=== PATIENT | male | born 1980 | race Caucasian/White ===

== ENCOUNTER 2018-08-15 15:23 | Emergency (ER) | payer BC ==
[2018-08-15 15:33] VITALS: BP 141/87
--- NOTE | 2018-08-15 15:40 | UC ---
Lower Extremity/Ankle HPI - HPI Summary HPI Summary: 38 yo male presents with RIGHT ankle injury. He tells me that he was on top of an 8ft ladder, when the ladder gave out and he landed awkwardly on the ground with his right foot. His right ankle inverted. Had immediate pain followed soon after by swelling. He took 1000mg tylenol and came to . He is able to bear weight, but is very painful. Denies numbness or tingling. Did not hit his head. Denies injury to head, back, buttocks, or torso. - History of Current Complaint Chief Complaint: UCLowerExtremity Stated Complaint: LEG INJURY Time Seen by Provider: 08/15/18 15:40 Hx Obtained From: Patient Onset/Duration: Sudden Onset Severity Initially: Moderate Severity Currently: Mild Pain Intensity: 3 Pain Scale Used: 0-10 Numeric Aggravating Factor(s): Standing, Ambulation Alleviating Factor(s): Rest, Elevation, OTC Meds Able to Bear Weight: Yes - Allergies/Home Medications Allergies/Adverse Reactions: Allergies Allergy/AdvReac Type Severity Reaction Status Date / Time No Known Allergies Allergy Verified 08/15/18 15:33 PMH/Surg Hx/FS Hx/Imm Hx - Additional Past Medical History Additional PMH: None - Surgical History Surgical History: None - Family History Known Family History: Positive: None - Social History Occupation: Employed Full-time Lives: With Family Alcohol Use: Rare Substance Use Type: None Smoking Status (MU): Never Smoked Tobacco Review of Systems All Other Systems Reviewed And Are Negative: Yes Constitutional: Positive: Negative Skin: Positive: Negative Respiratory: Positive: Negative Cardiovascular: Positive: Negative Neurovascular: Positive: Negative Musculoskeletal: Positive: Other: - Right ankle pain Neurological: Positive: Negative Psychological: Positive: Negative Physical Exam - Summary Physical Exam Summary: GENERAL: NAD. WDWN. No pain distress. SKIN: No rashes, sores, lesions, or open wounds. CHEST: No accessory muscle use. Breathing comfortably and in no distress. CV: Pulses intact PT and DP. Cap refill <2seconds MSK: RIGHT ANKLE: Severe edema overlying lateral malleolus. Mild TTP at lateral malleolus. ROM limited due to degree of edema. Strength 5/5. Increased laxity with inversion and pain with inversion. FOOT: NTTP. NEURO: Alert. Sensations intact and symmetric B/L LEs PSYCH: Age appropriate behavior. Triage Information Reviewed: Yes Vital Signs: Initial Vital Signs Temp 97.9 F 08/15/18 15:28 Pulse 87 08/15/18 15:28 Resp 18 08/15/18 15:28 BP 141/87 08/15/18 15:28 Pulse Ox 98 08/15/18 15:28 Vital Signs Reviewed: Yes Lower Extremity Course/Dx - Course Course Of Treatment: XR:IMPRESSION: #. Consider lateral supporting ligament injury given magnitude of soft tissue swelling and. joint effusion. Discussed results with pt. He was placed in an DAIANA wrap and gel ankle splint. Crutches provided. Advised to RICE and take ibuprofen for pain. Strongly advised to schedule a f/u with Orthopedics for suspected ligament injury given SABRINA and joint effusion. - Differential Dx/Diagnosis Provider Diagnosis: Right ankle sprain, Fall from ladder Discharge - Sign-Out/Discharge Documenting (check all that apply): Patient Departure All imaging exams completed and their final reports reviewed: Yes - Discharge Plan Condition: Stable Disposition: HOME Patient Education Materials: Ankle Sprain (ED) Referrals: Rasheed Arredondo MD [Primary Care Provider] - Everton Rubio MD [Medical Doctor] - As Soon As Possible Additional Instructions: If you develop a fever, shortness of breath, chest pain, new or worsening symptoms - please call your PCP or go to the ED. Your blood pressure was high at todays visit. Please see your primary provider within 4 weeks for recheck and re-evaluation. 1) Rest, Ice, and elevate your ankle as much as possible 2) Use the gel splint and crutches as needed for added support and pain relief 3) Please call Orthopedics at the number below to schedule a follow up appointment. - Billing Disposition and Condition Condition: STABLE Disposition: Home
== END 2018-08-15 16:42 | disposition home or self-care (01) ==
LOC: UCEAST 15:23
DX: S93.401A Sprain of unspecified ligament of right ankle, initial encounter (principal); W11.XXXA Fall on and from ladder, initial encounter; Y92.9 Unspecified place or not applicable
CPT/HCPCS: 99202; G0463